=== PATIENT | male | born 1985 | race Caucasian/White ===

== ENCOUNTER 2021-11-06 06:33 | Emergency (ER) | payer BC, SELFPAY ==
[2021-11-06 06:45] VITALS: BP 135/94; PULSE 97; RESP 20; TEMP 36.6; O2SAT 98
--- NOTE | 2021-11-06 06:54 | CRLHL7_ITS ---
For Patients: As a result of the Century Cures Act, medical imaging exams and procedure reports are released immediately into your electronic medical record. You may view this report before your referring provider. If you have questions, please contact your health care provider. Indication: Dislocation Technique: A total of two views of the right shoulder were acquired. Comparison: January 24, 2019 Findings: Bones: No fracture or destructive process. Joint spaces: Anterior inferior glenohumeral dislocation Soft tissues: Unremarkable. Impression: Anterior inferior glenohumeral dislocation Dictated by Geo Garcia MD @ 11/06/2021 7:17:40 AM (Electronically Signed)
[2021-11-06 06:56] VITALS: PULSE 98
--- NOTE | 2021-11-06 07:05 | PC.NURSE ---
Back from radiology.
--- NOTE | 2021-11-06 07:11 | ED.UPPEXIN ---
HPI - Extremity Injury (Upper) General Date Seen: 11/06/21 <Jona Castellanos MD - Last Filed: 11/06/21 07:19> Chief Complaint: Shoulder Injury/Pain <Jona Castellanos MD - Last Filed: 11/06/21 07:19> Stated Complaint: Dislocated shoulder <Jona Castellanos MD - Last Filed: 11/06/21 07:19> Time Seen by Provider: 11/06/21 06:55 <Jona Castellanos MD - Last Filed: 11/06/21 07:19> Source: patient and family <Jona Castellanos MD - Last Filed: 11/06/21 07:19> Mode of arrival: ambulatory <Jona Castellanos MD - Last Filed: 11/06/21 07:19> Limitations: no limitations <Jona Castellanos MD - Last Filed: 11/06/21 07:19> History of Present Illness HPI narrative: Patient is a 36-year-old male with a history of recurrent right shoulder dislocations. He was putting on his shirt this morning and his right shoulder anteriorly dislocated. Most of the time he is able to correct this on his own but today he could not as the muscles are tightening up. He has seen Orthopedics and discussed the procedure to prevent this from happening but he cannot afford to take the time off of work that would be required. <Jona Castellanos MD - Last Filed: 11/06/21 07:19> MD complaint: injury to: right and shoulder <Jona Castellanos MD - Last Filed: 11/06/21 07:19> Onset (ago): hour(s) <Jona Castellanos MD - Last Filed: 11/06/21 07:19> Hand dominance: Right <Jona Castellanos MD - Last Filed: 11/06/21 07:19> Place: home <Jona Castellanos MD - Last Filed: 11/06/21 07:19> Associated symptoms: denies other symptoms <Jona Castellanos MD - Last Filed: 11/06/21 07:19> Related Data Home Medications: Home Medications Medication Instructions Recorded Confirmed No Known Home Medications 11/06/21 11/06/21 <Jona Castellanos MD - Last Filed: 11/06/21 07:19> Allergies/Adverse Reactions: Allergies Allergy/AdvReac Type Severity Reaction Status Date / Time No Known Drug Allergies Allergy Verified 11/06/21 06:48 <Jona Castellanos MD - Last Filed: 11/06/21 07:19> Review of Systems Status of ROS: Reports: 6 or more systems reviewed and unremarkable except as noted in History and below <Jona Castellanos MD - Last Filed: 11/06/21 07:19> [facility] Medical History: Medical History (Updated 11/06/21 @ 07:19 by Jona Castellanos MD) Recurrent dislocation, right shoulder <Jona Castellanos MD - Last Filed: 11/06/21 07:19> Social History: Social History (Updated 11/06/21 @ 07:13 by Jona Castellanos MD) Narrative: , 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, smoker Smoking Status: Never smoker Do you use any of these nicotine containing products: None Second hand tobacco smoke exposure: No How often do you have a drink containing alcohol: monthly or less AUDIT-C Alcohol total score: 1 Non-prescribed substance use: denies use <Jona Castellanos MD - Last Filed: 11/06/21 07:19> Exam Const: Vital Signs, click to edit/add: Vital Signs - 24 hr 11/06/21 06:45 11/06/21 06:56 11/06/21 07:36 Temperature 97.8 F Pulse Rate [Left P ulse Oximeter] 97 98 76 Respiratory Rate 20 16 Blood Pressure [Le ft Upper Arm] 135/94 H 122/82 Pulse Oximetry 98 99 11/06/21 07:40 11/06/21 07:41 Temperature Pulse Rate [Left P ulse Oximeter] 89 89 Respiratory Rate 16 16 Blood Pressure [Le ft Upper Arm] 81/61 L 131/57 L Pulse Oximetry 99 99 <Jona Castellanos MD - Last Filed: 11/06/21 07:19> Vital Signs, click to edit/add: Vital Signs - 24 hr 11/06/21 06:45 11/06/21 06:56 11/06/21 07:36 Temperature 97.8 F Pulse Rate [Left P ulse Oximeter] 97 98 76 Respiratory Rate 20 16 Blood Pressure [Le ft Upper Arm] 135/94 H 122/82 Pulse Oximetry 98 99 11/06/21 07:40 11/06/21 07:41 Temperature Pulse Rate [Left P ulse Oximeter] 89 89 Respiratory Rate 16 16 Blood Pressure [Le ft Upper Arm] 81/61 L 131/57 L Pulse Oximetry 99 99 <Lay Landis MD - Last Filed: 11/06/21 08:36> Documenting provider has reviewed patient's vital signs: yes <Jona Castellanos MD - Last Filed: 11/06/21 07:19> Common normals: oriented x3 <Jona Castellanos MD - Last Filed: 11/06/21 07:19> General appearance: cooperative <Jona Castellanos MD - Last Filed: 11/06/21 07:19> HENMT: Common normals: normocephalic and head/scalp atraumatic <Jona Castellanos MD - Last Filed: 11/06/21 07:19> Head and scalp: normocephalic and atraumatic <Jona Castellanos MD - Last Filed: 11/06/21 07:19> Neck & C-Spine: Common normals: full ROM <Jona Castellanos MD - Last Filed: 11/06/21 07:19> General: normal visual inspection <Jona Castellanos MD - Last Filed: 11/06/21 07:19> Chest: Common normals: inspection of chest normal <Jona Castellanos MD - Last Filed: 11/06/21 07:19> Resp: Common normals: normal respiratory effort and clear to auscultation bilaterally <Jona Castellanos MD - Last Filed: 11/06/21 07:19> Auscultation: clear to auscultation bilaterally <Jona Castellanos MD - Last Filed: 11/06/21 07:19> Cardio: Common normals: regular rate, regular rhythm and no murmurs <Jona Castellanos MD - Last Filed: 11/06/21 07:19> Rate: regular rate <Jona Castellanos MD - Last Filed: 11/06/21 07:19> Rhythm: regular rhythm <Jona Castellanos MD - Last Filed: 11/06/21 07:19> Extremity: General: normal exam except as noted <Jona Castellanos MD - Last Filed: 11/06/21 07:19> Right upper extremity: shoulder joint (Obvious anterior dislocation) <Jona Castellanos MD - Last Filed: 11/06/21 07:19> Neuro: Common normals: oriented x3 <Jona Castellanos MD - Last Filed: 11/06/21 07:19> Course Course Hospital Course: Patient seen and examined. He has an obvious anterior right shoulder dislocation. An IV is established he is given 50 mcg of fentanyl and 1 mg of Ativan. <Jona Castellanos MD - Last Filed: 11/06/21 07:19> Vital Signs Vital signs: Initial Vital Signs Temperature 97.8 F 11/06/21 06:45 Temperature Source Temporal Artery Scan 11/06/21 06:45 Pulse Rate 97 11/06/21 06:45 Pulse Rhythm 11/06/21 06:45 Respiratory Rate 20 11/06/21 06:45 Blood Pressure 135/94 H 11/06/21 06:45 Blood Pressure Mean 107 11/06/21 06:45 Blood Pressure Position Sitting 11/06/21 06:45 Pulse Oximetry 98 11/06/21 06:45 Oxygen Delivery Method 11/06/21 06:45 Vital Signs Temperature 97.8 F 11/06/21 06:45 Pulse Rate 97 11/06/21 06:45 Respiratory Rate 20 11/06/21 06:45 Blood Pressure 135/94 H 11/06/21 06:45 Pulse Oximetry 98 11/06/21 06:45 Temperature 97.8 F 11/06/21 06:45 Pulse Rate 89 11/06/21 07:41 Respiratory Rate 16 11/06/21 07:41 Blood Pressure 131/57 L 11/06/21 07:41 Pulse Oximetry 99 11/06/21 07:41 <Jona Castellanos MD - Last Filed: 11/06/21 07:19> Initial Vital Signs Temperature 97.8 F 11/06/21 06:45 Temperature Source Temporal Artery Scan 11/06/21 06:45 Pulse Rate 97 11/06/21 06:45 Pulse Rhythm 11/06/21 06:45 Respiratory Rate 20 11/06/21 06:45 Blood Pressure 135/94 H 11/06/21 06:45 Blood Pressure Mean 107 11/06/21 06:45 Blood Pressure Position Sitting 11/06/21 06:45 Pulse Oximetry 98 11/06/21 06:45 Oxygen Delivery Method 11/06/21 06:45 Vital Signs Temperature 97.8 F 11/06/21 06:45 Pulse Rate 97 11/06/21 06:45 Respiratory Rate 20 11/06/21 06:45 Blood Pressure 135/94 H 11/06/21 06:45 Pulse Oximetry 98 11/06/21 06:45 Temperature 97.8 F 11/06/21 06:45 Pulse Rate 89 11/06/21 07:41 Respiratory Rate 16 11/06/21 07:41 Blood Pressure 131/57 L 11/06/21 07:41 Pulse Oximetry 99 11/06/21 07:41 <Lay Landis MD - Last Filed: 11/06/21 08:36> MDM - Extremity Injury (Upper) Imaging Data post reduction shoulder: Attestation: I have reviewed the pertinent imaging results. <Lay Landis MD - Last Filed: 11/06/21 08:36> My impression: Dr. Castellanos asked me to review patient's post reduction films. I see this as a normal shoulder. No evidence of fracture. <Lay Landis MD - Last Filed: 11/06/21 08:36> Radiologist's impression: Radiological over-read notes reduced shoulder with no evidence of acute injury on x-ray. <Lay Landis MD - Last Filed: 11/06/21 08:36> Discharge Plan Discharge Clinical Impression: Recurrent dislocation, right shoulder <Jona Castellanos MD - Last Filed: 11/06/21 07:19> Patient Disposition: Home, Self-Care <Jona Castellanos MD - Last Filed: 11/06/21 07:19> Condition: Improved <Jona Castellanos MD - Last Filed: 11/06/21 07:19> Additional Instructions: No work today. Ice. Wear a sling. Follow-up with orthopedics. Use Tylenol or ibuprofen for pain. <Jona Castellanos MD - Last Filed: 11/06/21 07:19> Prescriptions: No Action No Known Home Medications 0RF <Jona Castellanos MD - Last Filed: 11/06/21 07:19> Follow Up/Referrals: Nico Frank MD [Referring] - <Jona Castellanos MD - Last Filed: 11/06/21 07:19> Stand Alone Forms: [facility] Info Instructions <Jona Castellanos MD - Last Filed: 11/06/21 07:19> Procedures Orthopedic Joint Reduction Right shoulder: Written consent by: patient <Jona Castellanos MD - Last Filed: 11/06/21 07:19> Time Out Performed: Yes <Jona Castellanos MD - Last Filed: 11/06/21 07:19> Side: right <Jona Castellanos MD - Last Filed: 11/06/21 07:19> Joint Reduction Location: shoulder <Jona Castellanos MD - Last Filed: 11/06/21 07:19> Manipulation used?: Yes <Jona Castellanos MD - Last Filed: 11/06/21 07:19> Shoulder Technique Used (if applicable): traction/counter-traction <Jona Castellanos MD - Last Filed: 11/06/21 07:19> Post-reduction neuro vascular exam: intact <Jona Castellanos MD - Last Filed: 11/06/21 07:19> Post Reduction X-Ray Obtained: Yes <Jona Castellanos MD - Last Filed: 11/06/21 07:19> Post Reduction X-Ray Results: reduced <Jona Castellanos MD - Last Filed: 11/06/21 07:19> Patient Tolerated Procedure: well <Jona Castellanos MD - Last Filed: 11/06/21 07:19>
[2021-11-06] MEDS: fentaNYL 100 MCG/2 ML inj 50 MCG IVP ×2 (07:17→07:28)
[2021-11-06] MEDS: LORazepam 2 MG/ML inj 1 MG IVP (07:17)
[2021-11-06 07:36] VITALS: BP 122/82; PULSE 76; RESP 16; O2SAT 99
--- NOTE | 2021-11-06 07:39 | PC.NURSE ---
Dr. Castellanos attempted to put shoulder back in place.100mcg of Fentanyl and 1mg Ativan given. Unsuccessful. Called for Anesthesia.
[2021-11-06 07:40] VITALS: BP 131/57; BP 81/61; PULSE 76; PULSE 89; RESP 16; O2SAT 100; O2SAT 99
[2021-11-06 07:41] VITALS: BP 131/57; PULSE 89; RESP 16; O2SAT 99
--- NOTE | 2021-11-06 07:43 | CRLHL7_ITS ---
For Patients: As a result of the Cures Act, medical imaging exams and procedure reports are released immediately into your electronic medical record. You may view this report before your referring provider. If you have questions, please contact your health care provider. Indication: Postreduction Technique: Two views of the right shoulder were acquired current studies from 8:02 a.m. Comparison: November 06, 2021 at 6:54 a.m.. Findings: The glenohumeral dislocation has been reduced. There is no visible fracture Impression: Reduced dislocation. Dictated by Geo Garcia MD @ 11/06/2021 8:25:47 AM (Electronically Signed)
--- NOTE | 2021-11-06 07:49 | PC.NURSE ---
While waiting for Anesthesia to start, Patient's should popped back in on its own. Notified Anesthesia and MD. Should sling applied. Patient's pain is back to 0/10.
--- NOTE | 2021-11-06 08:10 | PC.NURSE ---
Post reduction Xray was completed. Patient was discharged and will call patient if further interventions are needed based off of X-ray. Patient left ambulatory with and had no further questions. Will follow up with Ortho in the future.
== END 2021-11-06 08:20 | disposition home or self-care (01) ==
LOC: ED 07:51
PROVIDERS: Emergency Provider Family Medicine
DX: M24.411 Recurrent dislocation, right shoulder (principal)
CPT/HCPCS: 23650; 73030; 96374; 99281; 99284; J2060; J3010